=== PATIENT | male | born 1950 | race Caucasian/White ===

== ENCOUNTER → 2017-05-16 | Outpatient (CLI) | payer MEDICARE, OTHER ==
[~2017-05-16] MED LIST: ALLEGRA; AMD200T; ASP81TEC PO; ASPIRIN; B-12; CA C1TAB26 PO; CEFU500T5 PO; CHOL100055 PO; CLON-378 PO; CYAN100053 IJ; DICY20TA10 PO; E400C PO; FEXO180T; FLONASE; FLT05NA16; FLT05NA16 NSEACH; FRSM40T; FRSM40T PO; GLYC1SUP RC; HYDR-3002; HYDR-3004 PO; KCL10CCR; LBT200T PO; MAGN400T6 PO; MECL25TA56 PO; MEPE50TA PO; MEPERIDINE; METH12DI SQ; MINOXIDIL; MTC10T; NF-ALI300T PO; NF-ESOM40C; OMEG1CAP51 PO; OMEG1CAP74 PO; OMG1KC; OMG1KC PO; OXYC-32 PO; POLY17PO23 PO; POTA10CA43 PO; TERA5CAP10 PO; TIOT18CA; TMSL.4C PO; TRZS2T PO; VITA1CAP59 PO; WARF7.5T PO; WRF10T; WRF10T PO; WRF2.5T; WRF5T; WRF5T PO; [UNRECOGNIZED DRUG - CODE] PO; [UNRECOGNIZED DRUG - CODE] PO
== END ==
LOC: CARD 10:03
PROVIDERS: ATTEND Physician Assistant
DX: I48.1 Persistent atrial fibrillation (principal); I25.10 Atherosclerotic heart disease of native coronary artery without angina pectoris; I50.32 Chronic diastolic (congestive) heart failure; I51.7 Cardiomegaly
CPT/HCPCS: 93306

== ENCOUNTER → 2017-07-04 | Outpatient (CLI) | payer MEDICARE, OTHER ==
--- NOTE | 2017-07-04 11:01 | Diagnostic Imaging Report ---
PROCEDURE: CT abdomen and pelvis without contrast. TECHNIQUE: Multiple contiguous axial images were obtained through the abdomen and pelvis without the use of intravenous contrast. INDICATION: Six-month history of abdominal/ pelvic pain. Study compared 03/21/2014. Mild cardiomegaly likely improved. The lung bases nonacute. There are small stones within the dependent gallbladder. The gallbladder itself not pathologically dilated. Its wall showed no obvious thickening and no pericholecystic edema. Unopacified liver unremarkable. No biliary dilatation. The spleen and adrenals negative. Some very slight hazy induration and increased density of the celiac and retroperitoneal fat about the pancreas is unchanged from 2014 and may reflect some mild scarring from a remote inflammatory process. This is a stable finding. Exophytic right renal cortical cyst shows curvilinear marginal calcification along its posterior wall. The cystic mass measuring 5.5 cm long axis unchanged from prior. An exophytic more dense nodule off the lower pole of the left kidney measures 3.1 cm today, 3.4 cm on prior. This is likely partial retraction of a complex cyst. No hydronephrosis or opaque stone. No new renal lesion. Additional smaller renal nodules unchanged. The air-containing appendix is well visualized and normal. There are noninflamed sigmoidal diverticula. There is no bowel, biliary, or urinary tract obstruction. The adrenals are negative. The atherosclerotic aortoiliac vessels nonaneurysmal. Calcified prostatomegaly indenting the bladder base unchanged from prior. The unopacified urinary bladder itself appeared intrinsically normal. There are no stones within either kidney or along the course of either nondilated ureter. No abdominal wall defect or hernia. The osseous structures nonacute. IMPRESSION: 1. Mild cholelithiasis without features of acute cholecystitis. 2. Some mild chronic induration of the retroperitoneal and mesenteric fat in the upper abdomen stable from more remote exams of 2013, believed incidental and chronic. 3. Noninflamed diverticulosis. Negative appendix. No urolithiasis or hydronephrosis. Bilateral exophytic renal nodules. The majority appeared simple, however, curvilinear calcifications associated with exophytic right renal cyst noted unchanged and a hyperdense nodule, left kidney, has decreased in size likely partial retraction of a hemorrhagic or proteinaceous cyst. 4. No adverse development or acute-appearing abnormalities. Dictated by: Dictated on workstation # [id number]
--- NOTE | 2017-07-04 18:15 | Diagnostic Imaging Report ---
PROCEDURE: CT right lower extremity without contrast. TECHNIQUE: Axially acquired CT was obtained through the right lower extremity without intravenous contrast. Coronal and sagittal reformations were also performed. INDICATION: Right groin pain. FINDINGS: There is no right inguinal lymphadenopathy or soft tissue mass. No fluid collection is seen. No evidence of bursal distention around the iliopsoas tendon or the greater trochanteric bursa. No significant right hip effusion. The right hip demonstrates normal alignment with no subluxation or dislocation. No fracture is seen. The visualized portion of the right SI joint demonstrates mild degenerative change and vacuum phenomenon. There is suggestion of prostate enlargement and nonspecific calcifications. The prostate however is not fully included on this exam. IMPRESSION: 1. Suggestion of prostate enlargement. 2. Mild degenerative changes in the right SI joint. Dictated by: Dictated on workstation # [id number]
== END ==
LOC: RAD 09:12
PROVIDERS: ATTEND Internal Medicine
DX: K80.20 Calculus of gallbladder without cholecystitis without obstruction (principal); K57.30 Diverticulosis of large intestine without perforation or abscess without bleeding; N28.89 Other specified disorders of kidney and ureter; M25.552 Pain in left hip
CPT/HCPCS: 73700; 74176

== ENCOUNTER → 2018-08-05 | Outpatient (CLI) | payer MEDICARE, OTHER ==
--- NOTE | 2018-08-05 15:51 | Diagnostic Imaging Report ---
INDICATION: Fall with right elbow pain. Time of exam 12:03 PM FINDINGS: Three views of the right elbow demonstrate normal alignment. Joint spaces are well-maintained. No fracture, dislocation or effusion is seen. IMPRESSION: No acute bony abnormality is detected. Dictated by: Dictated on workstation # [id number]
--- NOTE | 2018-08-05 15:52 | Diagnostic Imaging Report ---
INDICATION: Fall with right-sided chest pain. Time of exam 12:08 PM FINDINGS: Multiple views of the right ribs were obtained. No displaced rib fracture is seen. No parenchymal contusion, effusion or pneumothorax is seen. IMPRESSION: No displaced rib fracture is identified. Dictated by: Dictated on workstation # [id number]
== END ==
LOC: RAD 11:22
PROVIDERS: ATTEND Internal Medicine
DX: M25.521 Pain in right elbow (principal); R07.89 Other chest pain; W19.XXXA Unspecified fall, initial encounter
CPT/HCPCS: 71100; 73080

== ENCOUNTER → 2019-02-15 | Outpatient (CLI) | payer MEDICARE, OTHER | LOC: CARD 08:15 | PROVIDERS: ATTEND Internal Medicine Cardiovascular Disease | DX: I48.1 Persistent atrial fibrillation (principal); I25.10 Atherosclerotic heart disease of native coronary artery without angina pectoris; I11.0 Hypertensive heart disease with heart failure; I50.9 Heart failure, unspecified; E78.5 Hyperlipidemia, unspecified; J44.9 Chronic obstructive pulmonary disease, unspecified; I08.1 Rheumatic disorders of both mitral and tricuspid valves | CPT/HCPCS: 93306 ==

== ENCOUNTER → 2019-05-06 | Outpatient (CLI) | payer MEDICARE, OTHER ==
--- NOTE | 2019-05-06 08:02 | Diagnostic Imaging Report ---
PROCEDURE: CT head without contrast. TECHNIQUE: Multiple contiguous axial images were obtained through the brain without the use of intravenous contrast. Auto Exposure Controls were utilized during the CT exam to meet ALARA standards for radiation dose reduction. INDICATION: Head pressure. Headache. COMPARISON: CT head on 11/02/2014. FINDINGS: The ventricles and cortical sulci are age-appropriate. There is no midline shift or mass-effect. No acute intracranial hemorrhage is seen. There is no CT evidence of acute territorial ischemia. Age-indeterminate ischemic changes are seen in the right thalamus. Chronic encephalomalacia is seen in the left basal ganglia. No focal masses or collections are present. The calvarium is intact. Scleral banding is noted in the left globe. The visualized paranasal sinuses are clear. IMPRESSION: 1. No large acute territorial ischemia. Age-indeterminate ischemia is seen in the right thalamus. If indicated, consider brain MRI to further evaluate. 2. No hemorrhage or focal intra-axial mass. Dictated by: Dictated on workstation # [id number]
== END ==
LOC: RAD 07:33
PROVIDERS: ATTEND Internal Medicine
DX: I67.82 Cerebral ischemia (principal); I10 Essential (primary) hypertension; G47.33 Obstructive sleep apnea (adult) (pediatric)
CPT/HCPCS: 70450

== ENCOUNTER → 2019-06-11 | Day surgery (SDC) | payer MEDICARE, OTHER ==
[~2019-06-11] VITALS: Ht 182.9 cm; Wt 96.0 kg
[2019-06-11 09:06] LABS: HEMOGLOBIN 12.7 G/DL (13.3-17.7); MEAN PLATELET VOLUME 12.1 FL (7.4-10.4); RED CELL DISTRIBUTION WIDTH 14.6 % (10.0-14.5); WHITE BLOOD COUNT 4.4 10^3/uL (4.3-11.0)
[2019-06-11 09:20] LABS: INR 1.6 (0.8-1.4); PROTHROMBIN TIME PATIENT 19.8 SEC (12.2-14.7)
[2019-06-11 11:00] VITALS: BP 115/66
== END ==
LOC: SDC 08:26
PROVIDERS: ATTEND Internal Medicine
DX: G93.2 Benign intracranial hypertension (principal); Z53.8 Procedure and treatment not carried out for other reasons
CPT/HCPCS: 36415; 85027; 85610

== ENCOUNTER 2019-06-14 08:32 | Day surgery (SDC) | payer MEDICARE, OTHER ==
[~2019-06-14] VITALS: Ht 182 cm; Wt 93.6 kg
[2019-06-14 08:55] VITALS: BP 122/88
[2019-06-14 09:11] LABS: HEMOGLOBIN 11.6 G/DL (13.3-17.7); MEAN PLATELET VOLUME 12.1 FL (7.4-10.4); RED CELL DISTRIBUTION WIDTH 14.7 % (10.0-14.5); WHITE BLOOD COUNT 4.4 10^3/uL (4.3-11.0)
[2019-06-14 09:29] LABS: INR 1.3 (0.8-1.4); PROTHROMBIN TIME PATIENT 16.8 SEC (12.2-14.7)
== END 2019-06-14 12:00 | disposition home or self-care (01) ==
LOC: SDC 08:32
PROVIDERS: ATTEND Internal Medicine
DX: Z53.09 Procedure and treatment not carried out because of other contraindication (principal); R79.1 Abnormal coagulation profile
CPT/HCPCS: 36415; 85027; 85610

== ENCOUNTER 2019-08-17 12:12 | Emergency (ER) | payer MEDICARE, OTHER ==
[~2019-08-17] VITALS: Ht 182.8 cm; Wt 96.8 kg
[2019-08-17] MEDS ORDERED: IOHEXOL 350 MG/ML 100 ML (OMNIPAQUE 350) VIAL IV ONE (13:15)
[2019-08-17] MEDS ORDERED: CATHETER FLUSH 10 ML SYR IV PRN (13:15)
[2019-08-17] MEDS ORDERED: NS 100 ML (IVPB) BAG IV ONE (13:15)
[2019-08-17] MEDS ORDERED: HOLD METFORMIN - RECEIVED CONTRAST 20 ML VIAL IV SCH (13:15)
--- NOTE | 2019-08-17 14:40 | Diagnostic Imaging Report ---
PROCEDURE: CT chest without contrast. TECHNIQUE: Multiple contiguous axial images were obtained through the chest without the use of intravenous contrast. Auto Exposure Controls were utilized during the CT exam to meet ALARA standards for radiation dose reduction. DATE: August 17, 2019. COMPARISON: None. INDICATION: 69-year-old male, shortness of breath. PROCEDURE: Axial noncontrasted CT images of the chest. Noncontrasted limits the evaluation of the mediastinum and vascular structures. FINDINGS: There is a 3 mm calcified right middle lobe granuloma on axial image 68. There is a 4 mm semisolid left upper lobe pulmonary nodule on axial image 21. This is not definitely present on prior CT angiography head and neck exam of September 26, 2014. There is no additional identified noncalcified pulmonary nodule. There is no identified lung mass. There is a moderate-sized right pleural effusion and a small left pleural effusion. There are dependent areas of high attenuation in the right lower lobe which potentially could reflect aspiration of uncertain exact age of high attenuation contents. There is mild atelectasis in the right lower lobe. There is no additional focal airspace consolidation. There is no pneumothorax. The central airways are patent. The main pulmonary artery is abnormally dilated and measures 4.3 cm in diameter, compatible with pulmonary artery hypertension. There are coronary artery calcifications and additional areas of atherosclerotic disease. The heart is enlarged. There is no identified large pericardial effusion. There are multiple mildly prominent right paratracheal lymph nodes measuring up to approximately 9 mm in short axis on axial image 34 and adjacent sequential images. There is a right superior mediastinal lymph node on axial image 23 measuring 10 mm in short axis as well as an additional right sided superior mediastinal lymph node measuring similar in size. There is cholelithiasis without evidence of acute cholecystitis. There is an incompletely imaged at least trace amount of ascites. There is no identified acute bony abnormality. There is left-sided gynecomastia. IMPRESSION: 1. Moderate right and small left pleural effusion. 2. Dependent areas of high attenuation in the right lower lobe which could relate to aspiration of high attenuation contents of uncertain exact age. 3. No additional focal airspace consolidation. 4. There is a 4 mm semisolid left upper lobe pulmonary nodule. Recommend followup CT chest in 6 months to evaluate for stability. 5. Significantly dilated main pulmonary artery caliber suggesting pulmonary artery hypertension. 6. Prominent right paratracheal and right-sided superior mediastinal lymph nodes of uncertain exact etiology or significance. 7. Cholelithiasis. 8. Incompletely imaged at least trace volume ascites. Dictated by: Dictated on workstation # [id number]
--- NOTE | 2019-08-17 14:51 | Diagnostic Imaging Report ---
PROCEDURE: CT abdomen and pelvis with contrast. TECHNIQUE: Multiple contiguous axial images were obtained through the abdomen and pelvis after administration of intravenous contrast. Auto Exposure Controls were utilized during the CT exam to meet ALARA standards for radiation dose reduction. INDICATION: Pain. COMPARISON: Study compared with multiple priors, most recently June 2017 but also dating back to 2007. FINDINGS: On all of the previous exams, there was a relatively stable fluidlike density structure lateral to the lower pole of the mid to lower pole of the left kidney and in have been averaging measuring between 3 and 4 cm on all the prior studies. At that site, we now find a large hyperdense structure its Hounsfield units were about 70 at both the dynamic and the delayed images. I do not have preinjection imaging. This is much larger than previous and now mildly displaces the left kidney anteromedially. This structure measured 10 cm x 6 cm in axial plane with a cephalocaudal height of 7.4 cm. Given its presence over 10 years ago, this is presumed to reflect a hemorrhage within a cyst accounting for its abrupt substantial change in size as well as change in density. An enhancing solid mass could not however be excluded. There is some free fluid above the process along the left gutter likely a small amounts of a blood as well with likely mild inflammatory or hemorrhagic infiltration along the left retroperitoneum below the level of the pelvis inlet. There is no contrast extravasation. Peripherally calcified exophytic cyst off the right renal lower pole is a stable finding. This patient has bilateral pleural effusions greater right showing no findings for the loculation. Small volume of free fluid along the bilateral colic gutters into the deep dependent pelvis without loculation. There is no hydronephrosis. There are gallstones without evidence for acute cholecystitis is no bile duct dilatation, vascular structures atherosclerotic patent. Urinary bladder unremarkable. Osseous structures nonacute. The pancreas appeared within normal limits. The spleen itself is unremarkable IMPRESSION: Chronic left pararenal cyst shows abrupt enlargement and new hyperdensity presumed to reflect intracystic hemorrhage as a new finding. In addition, there is some nonloculated free fluid in the colic gutters and pelvis likely at least small amount of hemoperitoneum. There is no contrast extravasation or simple bilateral pleural effusions appeared nonloculated. Cholelithiasis without biliary dilatation. Additional renal cyst chronic. Dictated by: Dictated on workstation # [id number]
[2019-08-17 15:09] LABS: BASOPHILS % (AUTO) 0 % (0-10); EOSINOPHILS % (AUTO) 1 % (0-10); HEMATOCRIT 35 % (40-54); LYMPHOCYTES # (AUTO) 0.9 X 10^3 (1.0-4.0); LYMPHOCYTES % (AUTO) 14 % (12-44); MEAN CORPUSCULAR HEMOGLOBIN 30 PG (25-34); MEAN CORPUSCULAR HGB CONC 31 G/DL (32-36); MEAN CORPUSCULAR VOLUME 96 FL (80-99); MEAN PLATELET VOLUME 12.6 FL (7.4-10.4); MONOCYTES # (AUTO) 0.8 X 10^3 (0.0-1.0); MONOCYTES % (AUTO) 12 % (0-12); NEUTROPHILS # (AUTO) 4.8 X 10^3 (1.8-7.8); NEUTROPHILS % (AUTO) 74 % (42-75); PLATELET COUNT 112 10^3/uL (130-400); RED CELL DISTRIBUTION WIDTH 14.2 % (10.0-14.5); WHITE BLOOD COUNT 6.6 10^3/uL (4.3-11.0)
[2019-08-17 15:13] LABS: INR 3.3 (0.8-1.4); PROTHROMBIN TIME PATIENT 35.1 SEC (12.2-14.7)
[2019-08-17 15:21] LABS: ALBUMIN 4.2 GM/DL (3.2-4.5); BILIRUBIN,TOTAL 1.4 MG/DL (0.1-1.0); CALCIUM 9.4 MG/DL (8.5-10.1); CREATININE SERUM 1.62 MG/DL (0.60-1.30); POTASSIUM 3.3 MMOL/L (3.6-5.0); TOTAL PROTEIN 6.9 GM/DL (6.4-8.2)
[2019-08-17 15:37] LABS: BILIRUBIN,URINE NEGATIVE (NEGATIVE); CLARITY,URINE CLEAR; COLOR,URINE YELLOW; GLUCOSE, URINE (UA) NEGATIVE (NEGATIVE); KETONES,URINE NEGATIVE (NEGATIVE); LEUKOCYTE ESTERASE ,URINE NEGATIVE (NEGATIVE); NITRITE,URINE NEGATIVE (NEGATIVE); PROTEIN,URINE TRACE (NEGATIVE)
[2019-08-17 15:52] LABS: BACTERIA,URINE NEGATIVE /HPF
[2019-08-17] MEDS ORDERED: NS IV 1000 ML 1,000 ML IV ONE (17:16)
--- NOTE | 2019-08-17 17:16 | ED Abdominal Pain ---
General Chief Complaint: Abdominal/GI Problems Stated Complaint: LOWER ABD PAIN/BACK PAIN Nursing Triage Note: AMB TO ED ROOM REPORTS THAT WAS SENT FROM URGENT CARE HAS HAD ABD AND BACK PAIN FOR SEVERAL MONTHS,BUT HASGOTTEN LAB WORK DONE AT URGENT CARE AND PLACED ON CHART. Sepsis Screen: No Definite Risk Source of Information: Patient, Family, Old Records Exam Limitations: No Limitations (GARRET CHAVIRA MD) History of Present Illness Date Seen by Provider: Aug 17, 2019 Time Seen by Provider: 12:27 Initial Comments This 69-year-old gentleman presents to the emergency room with left mid abdominal pain that has been intermittent for 6 months but more severe over the past 3 days. His pain has diminished significantly from the more intense pain earlier in the day. He presented to the urgent care clinic where labs were drawn and he was referred to the emergency room. Patient has chronic headache pain issues from traumatic brain injury. He is also on warfarin for atrial fibrillation. Dr. Farris is his primary care provider. (GARRET CHAVIRA MD) Allergies and Home Medications Allergies Coded Allergies: No Known Drug Allergies (Unverified , 05/05/12) Home Medications Aspirin 81 Mg Tabec, 81 MG PO DAILY, (Reported) Cholecalciferol (Vitamin D3) 10,000 Unit Capsule, 1,000 UNIT PO DAILY, (Reported) Cyanocobalamin 1,000 Mcg/Ml Vial, 1,000 MCG IJ MONTHLY, (Reported) Dicyclomine Hcl 20 Mg Tablet, 20 MG PO Q6H PRN, (Reported) PRN IBS Fluticasone Propionate 16 Gm [place], 2 SPRAYS NSEACH BID, (Reported) Furosemide 40 Mg Tab, 100 MG PO DAILY @ 0600, (Reported) TAKES 2 & 1/2 (40MG) TABLETS DAILY Magnesium Oxide 400 Mg Tablet, 400 MG PO DAILY, (Reported) Meclizine Hcl 25 Mg Tablet, 25 MG PO DAILY PRN, (Reported) PRN DIZZINESS [place] 3 Polyunsat Fatty Acids 1,000 Mg Cap, 2,000 MG PO DAILY, (Reported) [place]-3 Fatty Acids/Fish Oil 1 Each Capsule, 1,000 MG PO HS, (Reported) Oxycodone Hcl/Acetaminophen 1 Each Tablet, 0.5 TAB PO Q6HR PRN, (Reported) PRN PAIN TAKES 1/2 TABLET OF THE 10-650 MG Polyethylene Glycol 17 Gm Pack, 17 GM PO BID, (Reported) Terazosin Hcl 5 Mg Capsule, 10 MG PO HS, (Reported) TAKES 2 (5MG) CAPSULES AT BEDTIME Vitamin B Complex 1 Cap Capsule, 1 CAP PO DAILY, (Reported) Vitamin E Acetate 400 Unit Capsule, 400 UNIT PO DAILY, (Reported) Warfarin Sodium 5 Mg Tablet, 5-7.5 MG PO DAILY, (Reported) TAKES 1 OR 1 & 1/2 TABLETS DAILY (VARIES ACCORDING TO PROTINE READINGS) Patient Home Medication List Home Medication List Reviewed: Yes (GARRET CHAVIRA MD) Review of Systems Review of Systems Constitutional: no symptoms reported EENTM: No Symptoms Reported Respiratory: No Symptoms Reported Cardiovascular: See HPI Gastrointestinal: See HPI Musculoskeletal: no symptoms reported Skin: no symptoms reported Psychiatric/Neurological: See HPI Endocrine: No Symptoms Reported Hematologic/Lymphatic: See HPI (GARRET CHAVIRA MD) Past Ahtaqqi-Kqakdk-Qdvqwq Hx Past Med/Social Hx: Reviewed and Corrections made (GARRET CHAVIRA MD) Patient Social History Alcohol Use: Denies Use Recreational Drug Use: No Smoking Status: Never a Smoker Recent Foreign Travel: No Contact w/Someone Who Travel: No Recent Infectious Disease Expo: No Recent Hopitalizations: Yes (jun 2011 pacemaker placement,LAP EMIL 2005) (GARRET CHAVIRA MD) Immunizations Up To Date Date of Pneumonia Vaccine: Jun 29, 2012 Date of Influenza Vaccine: Sep 07, 2014 (GARRET CHAVIRA MD) Past Medical History Surgeries: Yes (detached retina) Cardiac (cardiac catheter without interventions), Pacemaker Respiratory: No Cardiac: Yes (PACEMAKER, diastolic dysfunction) Atrial Fibrillation, Coronary Artery Disease Neurological: Yes Traumatic Brain Injury (with chronic headaches) Reproductive Disorders: No Genitourinary: No Gastrointestinal: Yes (ULCERS) Musculoskeletal: No Endocrine: No Cancer: No Psychosocial: Yes Blood Disorders: Yes (history of recommend spotted fever, Lyme's disease, and West Nile virus) (GARRET CHAVIRA MD) Physical Exam Vital Signs Vital Signs - First Documented 08/17/19 12:17 Temp 36.8 Pulse 79 Resp 18 B/P (MAP) 140/85 (103) Pulse Ox 98 O2 Delivery Room Air (ELEAZAR LEE) Vital Signs Capillary Refill : Less Than 3 Seconds (GARRET CHAVIRA MD) Height/Weight/BMI Height: 6'" Weight: 230lbs. oz. 104.600912jm; 28.00 BMI Method:Stated General Appearance: WD/WN, no apparent distress HEENT: PERRL/EOMI, normal ENT inspection, other (mucous membranes somewhat dry) Respiratory: lungs clear, normal breath sounds, no respiratory distress, no accessory muscle use Cardiovascular: regular rate, rhythm, no edema, no murmur Gastrointestinal: normal bowel sounds, soft, tenderness (minimal left central abdominal tenderness) Extremities: normal inspection, no pedal edema Neurologic/Psychiatric: laboratory technician II-XII nml as tested, no motor/sensory deficits, alert, normal mood/affect, oriented x 3 Skin: normal color, warm/dry (GARRET CHAVIRA MD) Progress/Results/Core Measures Results/Orders Lab Results Laboratory Tests Test 08/17/19 12:05 08/17/19 15:30 Range/Units White Blood Count 6.6 4.3-11.0 10^3/uL Red Blood Count 3.68 L 4.35-5.85 10^6/uL Hemoglobin 11.0 L 13.3-17.7 G/DL Hematocrit 35 L 40-54 % Mean Corpuscular Volume 96 80-99 FL Mean Corpuscular Hemoglobin 30 25-34 PG Mean Corpuscular Hemoglobin Concent 31 L 32-36 G/DL Red Cell Distribution Width 14.2 10.0-14.5 % Platelet Count 112 L 130-400 10^3/uL Mean Platelet Volume 12.6 H 7.4-10.4 FL Neutrophils (%) (Auto) 74 42-75 % Lymphocytes (%) (Auto) 14 12-44 % Monocytes (%) (Auto) 12 0-12 % Eosinophils (%) (Auto) 1 0-10 % Basophils (%) (Auto) 0 0-10 % Neutrophils # (Auto) 4.8 1.8-7.8 X 10^3 Lymphocytes # (Auto) 0.9 L 1.0-4.0 X 10^3 Monocytes # (Auto) 0.8 0.0-1.0 X 10^3 Eosinophils # (Auto) 0.0 0.0-0.3 10^3/uL Basophils # (Auto) 0.0 0.0-0.1 10^3/uL Prothrombin Time 35.1 H 12.2-14.7 SEC INR Comment 3.3 H 0.8-1.4 Activated Partial Thromboplast Time 57 H 24-35 SEC Sodium Level 140 135-145 MMOL/L Potassium Level 3.3 L 3.6-5.0 MMOL/L Chloride Level 104 98-107 MMOL/L Carbon Dioxide Level 26 21-32 MMOL/L Anion Gap 10 5-14 MMOL/L Blood Urea Nitrogen 39 H 7-18 MG/DL Creatinine 1.62 H 0.60-1.30 MG/DL Estimat Glomerular Filtration Rate 42 BUN/Creatinine Ratio 24 Glucose Level 95 70-105 MG/DL Calcium Level 9.4 8.5-10.1 MG/DL Corrected Calcium 9.2 8.5-10.1 MG/DL Total Bilirubin 1.4 H 0.1-1.0 MG/DL Aspartate Amino Transf (AST/SGOT) 32 5-34 U/L Alanine Aminotransferase (ALT/SGPT) 22 0-55 U/L Alkaline Phosphatase 111 40-136 U/L Total Protein 6.9 6.4-8.2 GM/DL Albumin 4.2 3.2-4.5 GM/DL Urine Color YELLOW Urine Clarity CLEAR Urine pH 7.0 5-9 Urine Specific [place] 1.015 L 1.016-1.022 Urine Protein TRACE NEGATIVE Urine Glucose (UA) NEGATIVE NEGATIVE Urine Ketones NEGATIVE NEGATIVE Urine Nitrite NEGATIVE NEGATIVE Urine Bilirubin NEGATIVE NEGATIVE Urine Urobilinogen 0.2 < = 1.0 MG/DL Urine Leukocyte Esterase NEGATIVE NEGATIVE Urine RBC (Auto) 1+ H NEGATIVE Urine RBC 10-25 H /HPF Urine WBC NONE /HPF Urine Squamous Epithelial Cells NONE /HPF Urine Crystals NONE /LPF Urine Bacteria NEGATIVE /HPF Urine Casts NONE /LPF Urine Mucus NEGATIVE /LPF Urine Culture Indicated NO (ELEAZAR LEE) Medications Given in ED Current Medications Medications Dose Ordered Sig/Binta Route Start Time Stop Time Status Last Admin Dose Admin Iohexol 100 ml ONCE ONCE IV 08/17/19 13:15 08/17/19 14:02 DC 08/17/19 13:35 100 ML Sodium Chloride 100 ml ONCE ONCE IV 08/17/19 13:15 08/17/19 14:02 DC 08/17/19 13:35 80 ML Sodium Chloride 1,000 ml @ 0 mls/hr Q0M ONCE IV 08/17/19 17:16 08/17/19 17:17 DC 08/17/19 17:23 1,000 MLS/HR (ELEAZAR LEE) Vital Signs/I&O 08/17/19 08/17/19 08/17/19 12:17 17:58 18:32 Temp 36.8 Pulse 79 66 60 Resp 18 18 18 B/P (MAP) 140/85 (103) 109/62 (78) 105/59 (74) Pulse Ox 98 93 94 O2 Delivery Room Air Room Air Room Air (ELEAZAR LEE) Blood Pressure Mean: 103 POS Progress Progress Note #1: Time: 17:34 Progress Note After reviewing labs sent by urgent care, CT of the abdomen and pelvis was obtained. Imaging revealed pleural effusions as well as perihepatic fluid. There is also free fluid extending into the pelvis. Also of concern and possibly unrelated there is a significant increase in size of a pararenal cystic structure on the left. The density of contents suggest it is hemorrhagic. This structure appeared stable on prior images but there has now been a dramatic increase in size since the prior CT in 2013. Labs were repeated after reviewing CT scan. Creatinine has worsened since earlier in the day. A liter of IV fluid is being infused. Patient's pain has waxed and waned during his ER stay and he has not required pain medication. Case was discussed with Dr. Ochoa. It is agreed no immediate action needs to be taken from a surgical perspective as there is no extravasation of contrast. However, this patient's INR is 3.3 and he should be monitored to ensure no further complications progress. Dr. Ochoa's concern is that this cystic lesion is adjacent to the kidney and the retroperitoneal space. Dr. Ochoa would like insurances from urology before accepting the case. I therefore discussed the case with Dr. Kenny. He believes it is acceptable to monitor the patient overnight and repeat imaging in the morning. However, if there are any complications and active bleeding occurs or higher level diagnostics need to occur, patient will be better served at a tertiary care facility with more capabilities. Dr. Kenny had indicated patient will be transferred on a surgical intervention was necessary. Furthermore, patient does have renal insufficiency and having nephrology services available would be beneficial. After discussing with the patient and his family, they do not want to risk have to and to be transferred if there are any complications. They prefer to be admitted directly to a tertiary care facility and requested I contacted [facility].. Progress Note #2: Time: 17:57 Progress Note Case was discussed with Dr. Goldstein, urologist at [facility]. He excepts the case. I'm awaiting conversation with the hospitals before transfer arrangements are finalized. Progress Note #3: Time: 18:30 Progress Note Care of this patient is being transitioned to Dr. Lee to complete transfer arrangements. He will discuss the case with Dr. Trivedi and order vitamin K if felt appropriate. Vitamin K has not yet been administered as patient has no active extravasation of blood on the CT. (GARRET CHAVIRA MD) Diagnostic Imaging Diagonstic Imaging: CT Plain Films/CT/US/NM/MRI: abdomen, pelvis Comments CT abdomen and pelvis viewed by me and report reviewed. See report below: NAME: CARMELITA GIPSON MED REC#: [id number] PT STATUS: REG ER : 1950 PHYSICIAN: GARRET CHAVIRA MD ADMIT DATE: 08/17/19/ER Signed Date of Exam:08/17/19 CT ABDOMEN/PELVIS W PROCEDURE: CT abdomen and pelvis with contrast. TECHNIQUE: Multiple contiguous axial images were obtained through the abdomen and pelvis after administration of intravenous contrast. Auto Exposure Controls were utilized during the CT exam to meet ALARA standards for radiation dose reduction. INDICATION: Pain. COMPARISON: Study compared with multiple priors, most recently June 2017 but also dating back to 2007. FINDINGS: On all of the previous exams, there was a relatively stable fluidlike density structure lateral to the lower pole of the mid to lower pole of the left kidney and in have been averaging measuring between 3 and 4 cm on all the prior studies. At that site, we now find a large hyperdense structure its Hounsfield units were about 70 at both the dynamic and the delayed images. I do not have preinjection imaging. This is much larger than previous and now mildly displaces the left kidney anteromedially. This structure measured 10 cm x 6 cm in axial plane with a cephalocaudal height of 7.4 cm. Given its presence over 10 years ago, this is presumed to reflect a hemorrhage within a cyst accounting for its abrupt substantial change in size as well as change in density. An enhancing solid mass could not however be excluded. There is some free fluid above the process along the left gutter likely a small amounts of a blood as well with likely mild inflammatory or hemorrhagic infiltration along the left retroperitoneum below the level of the pelvis inlet. There is no contrast extravasation. Peripherally calcified exophytic cyst off the right renal lower pole is a stable finding. This patient has bilateral pleural effusions greater right showing no findings for the loculation. Small volume of free fluid along the bilateral colic gutters into the deep dependent pelvis without loculation. There is no hydronephrosis. There are gallstones without evidence for acute cholecystitis is no bile duct dilatation, vascular structures atherosclerotic patent. Urinary bladder unremarkable. Osseous structures nonacute. The pancreas appeared within normal limits. The spleen itself is unremarkable IMPRESSION: Chronic left pararenal cyst shows abrupt enlargement and new hyperdensity presumed to reflect intracystic hemorrhage as a new finding. In addition, there is some nonloculated free fluid in the colic gutters and pelvis likely at least small amount of hemoperitoneum. There is no contrast extravasation or simple bilateral pleural effusions appeared nonloculated. Cholelithiasis without biliary dilatation. Additional renal cyst chronic. Dictated by: Dictated on workstation # [id number] Dict: 08/17/19 1406 Trans: 08/17/191657 [facility] [id number] Interpreted by: EVERARDO RAND Electronically signed by: EVERARDO RAND 08/17/191657 Diagonstic Imaging: CT Plain Films/CT/US/NM/MRI: chest Comments CT chest viewed by me and report reviewed. See report below: NAME: CARMELITA GIPSON [facility] REC#: [id number] PT STATUS: REG ER : 1950 PHYSICIAN: GARRET CHAVIRA MD ADMIT DATE: 08/17/19/ER Draft Date of Exam:08/17/19 CT CHEST WO PROCEDURE: CT chest without contrast. TECHNIQUE: Multiple contiguous axial images were obtained through the chest without the use of intravenous contrast. Auto Exposure Controls were utilized during the CT exam to meet ALARA standards for radiation dose reduction. DATE: August 17, 2019. COMPARISON: None. INDICATION: 69-year-old male, shortness of breath. PROCEDURE: Axial noncontrasted CT images of the chest. Noncontrasted limits the evaluation of the mediastinum and vascular structures. FINDINGS: There is a 3 mm calcified right middle lobe granuloma on axial image 68. There is a 4 mm semisolid left upper lobe pulmonary nodule on axial image 21. This is not definitely present on prior CT angiography head and neck exam of September 26, 2014. There is no additional identified noncalcified pulmonary nodule. There is no identified lung mass. There is a moderate-sized right pleural effusion and a small left pleural effusion. There are dependent areas of high attenuation in the right lower lobe which potentially could reflect aspiration of uncertain exact age of high attenuation contents. There is mild atelectasis in the right lower lobe. There is no additional focal airspace consolidation. There is no pneumothorax. The central airways are patent. The main pulmonary artery is abnormally dilated and measures 4.3 cm in diameter, compatible with pulmonary artery hypertension. There are coronary artery calcifications and additional areas of atherosclerotic disease. The heart is enlarged. There is no identified large pericardial effusion. There are multiple mildly prominent right paratracheal lymph nodes measuring up to approximately 9 mm in short axis on axial image 34 and adjacent sequential images. There is a right superior mediastinal lymph node on axial image 23 measuring 10 mm in short axis as well as an additional right sided superior mediastinal lymph node measuring similar in size. There is cholelithiasis without evidence of acute cholecystitis. There is an incompletely imaged at least trace amount of ascites. There is no identified acute bony abnormality. There is left-sided gynecomastia. IMPRESSION: 1. Moderate right and small left pleural effusion. 2. Dependent areas of high attenuation in the right lower lobe which could relate to aspiration of high attenuation contents of uncertain exact age. 3. No additional focal airspace consolidation. 4. There is a 4 mm semisolid left upper lobe pulmonary nodule. Recommend followup CT chest in 6 months to evaluate for stability. 5. Significantly dilated main pulmonary artery caliber suggesting pulmonary artery hypertension. 6. Prominent right paratracheal and right-sided superior mediastinal lymph nodes of uncertain exact etiology or significance. 7. Cholelithiasis. 8. Incompletely imaged at least trace volume ascites. Dictated on workstation # [id number] Dict: 08/17/19 1423 Trans: 08/17/19 1440 [id number] Interpreted by: MANJULA PRO MD (GARRET CHAVIRA MD) Departure Impression Primary Impression: Hemorrhagic cyst Additional Impressions: Supratherapeutic INR Renal insufficiency Bilateral pleural effusion Disposition: XF [facility] HOSP Condition: Stable Transfer Transfer Reason: Exceeds level of care Time Spoke to Accepting Phy: 18:[address] Trivedi, internal medicine at [place], [place] accepts the patient. Transfer Facility: [place], [place]. Method of Transfer: EMS (ELEAZAR LEE) Departure-Patient Inst. Referrals: THOMPSON FARRIS DO (PCP/Family) Primary Care Physician Copy Copies To 1: THOMPSON FARRIS JOSHUA T MD Aug 17, 2019 17:16 ELEAZAR GILBERT Aug 17, 2019 18:58 POS
--- NOTE | 2019-08-17 17:29 | NUR ---
[facility] STARTEDFAMILY INFORMED WAITING A RETURN CALL FROM [facility]
--- NOTE | 2019-08-17 17:54 | NUR ---
[facility] CAME TO DESK AND REPORTS HAVE BEEN HERE SINCE 1 PM WE COULD OF BEEN IN [place] . BY NOW INFORMED THAT THEY THEY MAY HAVE TO WAIT IF THEY WOULD LEAVE AND START PROCESS ALL OVER. CON'T TO WAITNG FOR ACCEPTNACE FROM [facility]
[2019-08-17 17:58] VITALS: BP 109/62
--- NOTE | 2019-08-17 18:10 | NUR ---
CON'T TO WAIT FOR [facility] TO CALL BACK
--- NOTE | 2019-08-17 18:15 | NUR ---
TO ROOM FAMILY INFORMED CON'T TO WAIT FOR CALL BACK FROM [facility]. HELPED TO CHAIR AT BEDSIDE.
[2019-08-17 18:32] VITALS: BP 105/59
--- NOTE | 2019-08-17 18:46 | NUR ---
INFORMED CON'T TO WAIT FOR CALL BACK FROM [facility]
--- NOTE | 2019-08-17 19:00 | NUR ---
TRANSFER FORM SIGNED BY INFORMED THAT NOW WAITING FOR ROOM FROM [facility]
--- NOTE | 2019-08-17 19:04 | NUR ---
CT PUT ON CLOUD TO [facility]
--- NOTE | 2019-08-17 19:13 | NUR ---
Recieved report from Kaya Read RN
[2019-08-17] MEDS ORDERED: NS IV 1000 ML 1,000 ML ONE (20:13)
[2019-08-17] MEDS ORDERED: NS IV 1000 ML 1,000 ML IV SCH (20:15)
[2019-08-17 20:24] VITALS: BP 123/68
== END 2019-08-17 20:28 | disposition short-term general hospital (02) ==
LOC: EDUNIT# 12:12 → ER 12:13
DX: N28.1 Cyst of kidney, acquired (principal); R79.1 Abnormal coagulation profile; J90 Pleural effusion, not elsewhere classified; I48.91 Unspecified atrial fibrillation; I25.10 Atherosclerotic heart disease of native coronary artery without angina pectoris; Z87.820 Personal history of traumatic brain injury; Z79.01 Long term (current) use of anticoagulants; Z79.82 Long term (current) use of aspirin; Z79.51 Long term (current) use of inhaled steroids; Z95.0 Presence of cardiac pacemaker
CPT/HCPCS: 36415; 71250; 74177; 80053; 81000; 85025; 85610; 85730; 96360